=== PATIENT | female | born 1955 | race Caucasian/White ===

== ENCOUNTER 2020-10-18 10:39 | Observation (INO) ==
[~2020-10-18 10:39] MED LIST: Ringers Solution, Lactated 1,000 ML IVC SCH
[2020-10-18] MEDS ORDERED: Lidocaine -MPF 2% 2 ML VIAL ONE (10:54)
[2020-10-18] MEDS ORDERED: *HR* FentaNYL (PF) 100 MCG/2 ML VIAL ONE (10:54)
[2020-10-18] MEDS ORDERED: Ketorolac 30 MG/ML VIAL ONE ×2 (10:54→14:55)
[2020-10-18] MEDS ORDERED: *HR* Midazolam HCl 2 MG/2 ML VIAL ONE (10:54)
[2020-10-18] MEDS ORDERED: *HR* Propofol 200 MG/20 ML VIAL IVP ONE (10:54)
[2020-10-18] MEDS ORDERED: Ondansetron 4 MG/2 ML VIAL ONE (10:54)
[2020-10-18] MEDS ORDERED: ceFAZolin 2,000 MG in Water for inj. (sterile) 20 ML IVP ONE (11:14)
[2020-10-18] MEDS ORDERED: Insulin Regular, Human 100 UNIT/ML SUBQ ONE (11:57)
[2020-10-18] MEDS ORDERED: Insulin Regular, Human 100 UNIT/ML ONE (12:01)
[2020-10-18] MEDS ORDERED: Silver Nitrate Applicator 1 STICK..EA. TP ONE (12:06)
[2020-10-18] MEDS ORDERED: Ferric Subsulfate 8 GM TOPICAL ONE (12:06)
[2020-10-18] MEDS ORDERED: *HR* Belladonna Alkaloids/Opium 30 MG RECTAL SUPPOSITORY RC ONE (12:06)
[2020-10-18] MEDS ORDERED: Lidocaine -MPF 4% 5 ML AMPUL ONE (13:17)
[2020-10-18] MEDS ORDERED: *HR* HYDROmorphone (PF) 1 MG/ML SYRINGE ONE (15:44)
[2020-10-18] MEDS ORDERED: *HR* HYDROmorphone (PF) 1 MG/ML SYRINGE IVP PRN (15:45)
[2020-10-18] MEDS ORDERED: Ibuprofen 800 MG TABLET PO ONE (16:04)
[2020-10-18] MEDS ORDERED: Levalbuterol Neb 1.25 MG/3 ML IH ONE (16:31)
[2020-10-18] MEDS ORDERED: Levalbuterol Neb 1.25 MG/3 ML ONE (16:32)
[2020-10-18] MEDS ORDERED: Acetaminophen 325 MG TABLET PO PRN (17:33)
[2020-10-18] MEDS ORDERED: Ondansetron 4 MG/2 ML VIAL IVP PRN (17:33)
[2020-10-18] MEDS ORDERED: *HR* HYDROcodone/Acet 5/325 mg TABLET PO PRN (17:33)
[2020-10-18] MEDS ORDERED: Naloxone 0.4 MG/ML INJ IVP PRN (17:33)
[2020-10-18] MEDS ORDERED: D5% in Water 1,000 ML IVC PRN (17:38)
[2020-10-18] MEDS ORDERED: *HR* Dextrose 50 % in Water (Vial) 50 ML VIAL IVP PRN (17:38)
[2020-10-18] MEDS ORDERED: Dextrose Gel 15 GM/37.5 ML TUBE PO PRN ×2 (17:38)
[2020-10-18 17:51] LABS: Hematocrit 40.9 % (35.3-44.9); Hemoglobin 13.7 g/dL (11.5-15.4); Mean Corpuscular HGB Conc 33.5 g/dL (31.6-35.5); Mean Corpuscular Hemoglobin 29.8 pg (28.0-33.3); Mean Corpuscular Volume 89.1 fL (83.0-100.0); Mean Platelet Volume 9.8 fL (9.4-12.4); Platelet Count 200 K/mcL (140-400); Red Blood Count 4.59 M/mcL (3.82-4.97); Red Cell Distribution Width 12.8 % (11.5-14.5); White Blood Count 6.7 K/mcL (4.3-11.1)
[2020-10-18 18:08] LABS: BUN/Creatinine Ratio 15 (6-26); Blood Urea Nitrogen 10 mg/dL (8-23); Calcium 8.4 mg/dL (8.6-10.3); Carbon Dioxide 27 mEq/L (23-29); Chloride 100 mEq/L (98-107); Glucose 280 mg/dL (70-105); Osmolality,Calculated 289 (280-300); Potassium 3.5 mEq/L (3.5-5.1); Sodium 135 mEq/L (136-145); eGFR For African Americans > 60 (> 60); eGFR For Non-African Americans > 60 (> 60)
[2020-10-18] MEDS: Ipratropium/Albuterol Neb 3 ML IH SCH ×2 (20:03→23:52)
[2020-10-18] MEDS ORDERED: Insulin DETEMIR 100 UNIT/ML per UNIT SUBQ ONE (21:00)
[2020-10-19] MEDS: Ipratropium/Albuterol Neb 3 ML IH SCH ×2 (04:34→06:23)
[2020-10-19] MEDS ORDERED: Levothyroxine 25 MCG TABLET PO SCH (06:30)
[2020-10-19] MEDS ORDERED: Insulin LISPRO 300 UNITS/3 ML VIAL SUBQ SCH (07:30)
[2020-10-19 07:56] VITALS: BP 107/65
[2020-10-19] MEDS ORDERED: Insulin DETEMIR 100 UNIT/ML X5UNITS SUBQ SCH (09:00)
[2020-10-19 13:00] LABS: Estimated Average Glucose 315 mg/dl; Hemoglobin A1C 12.6 %
== END 2020-10-19 11:55 | disposition home or self-care (01) ==
LOC: SAMDAYGRE 10:39 → INPGRE 10:39
PROVIDERS: ADMIT Family Medicine; ATTEND Obstetrics & Gynecology